=== PATIENT | female | born 1995 | race Two or more races ===

== ENCOUNTER 2017-02-17 14:41 | Outpatient (CLI) | payer OTHER | END 2017-02-17 14:51 | disposition home or self-care (01) | LOC: SONOGRAMA 14:41 → MAMO-SONO 14:45 → SONOGRAMA 14:51 | DX: E06.1 Subacute thyroiditis (principal) ==

== ENCOUNTER 2017-03-03 10:22 | Outpatient (CLI) | payer OTHER | END 2017-03-03 10:57 | disposition home or self-care (01) | LOC: LAB 10:22 | DX: D64.89 Other specified anemias (principal); N39.0 Urinary tract infection, site not specified; E03.8 Other specified hypothyroidism; R73.9 Hyperglycemia, unspecified; E78.9 Disorder of lipoprotein metabolism, unspecified; R19.09 Other intra-abdominal and pelvic swelling, mass and lump; E55.9 Vitamin D deficiency, unspecified; R82.79 Other abnormal findings on microbiological examination of urine ==

== ENCOUNTER 2018-05-18 14:10 | Outpatient (CLI) | payer OTHER | END 2018-05-18 14:20 | disposition home or self-care (01) | LOC: RAD 14:10 | DX: R50.9 Fever, unspecified (principal) ==

== ENCOUNTER 2018-07-03 07:30 | Emergency (ER) | payer OTHER ==
[~2018-07-03] VITALS: Ht 172.7 cm; Wt 70.3 kg
== END 2018-07-03 12:46 | disposition home or self-care (01) ==
LOC: ER 07:30
DX: R11.11 Vomiting without nausea (principal)

== ENCOUNTER → 2018-09-26 | Emergency (ER) | payer OTHER ==
[~2018-09-26] VITALS: Ht 172.7 cm; Wt 70.3 kg
[~2018-09-26] MED LIST: SYNTHROID88 MCG
== END | disposition left against medical advice (07) ==
LOC: ER 06:20
DX: Z53.20 Procedure and treatment not carried out because of patient's decision for unspecified reasons (principal)

== ENCOUNTER → 2018-10-16 | Emergency (ER) | payer OTHER ==
[~2018-10-16] VITALS: Ht 172.7 cm; Wt 70.3 kg
[~2018-10-16] MED LIST changes: +LEVOTHYROXINE25 MCG
== END | disposition home or self-care (01) ==
LOC: ER 15:46
DX: K52.89 Other specified noninfective gastroenteritis and colitis (principal); R10.2 Pelvic and perineal pain

== ENCOUNTER 2018-10-29 11:30 | Outpatient (CLI) | payer OTHER | END 2018-10-29 11:39 | disposition home or self-care (01) | LOC: RAD 11:30 | DX: R50.9 Fever, unspecified (principal) ==